=== PATIENT | male | born 1970 | race Caucasian/White ===

== ENCOUNTER 2016-10-24 18:14 | Emergency (ER) | payer BC ==
[~2016-10-24] VITALS: Ht 182.9 cm; Wt 87.7 kg
[2016-10-24 18:30] VITALS: TEMP 36.8; O2SAT 97; Ht 182.9 cm; Wt 87.7 kg
[2016-10-24] MEDS ORDERED: SODIUM CHLORIDE 0.9% 1000ML 1,000 ML IV STA (18:38)
[2016-10-24 18:49] LABS: BASO % 0.4 %; BASO ABS # 0.04 K/uL (0-0.2); COMPLETE YES; EOS % 3.4 %; HEMATOCRIT 44.7 % (42-52); IG% 0.6 %; LYMPH % 26.1 %; LYMPH ABS # 2.53 K/uL (1.2-3.4); MEAN CELL VOLUME 93.3 fL (80-100); MEAN CORPUSCULAR HEMOGLOBIN 32.6 pg (25-34); MEAN CORPUSCULAR HGB CONC 34.9 g/dl (32-36); MEAN PLATELET VOLUME 11.1 fL (7.4-10.4); MONO % 8.8 %; NEUT % 60.7 %; PLATELET COUNT 308 K/uL (130-400); RED BLOOD COUNT 4.79 M/uL (4.7-6.1); WHITE BLOOD COUNT 9.69 K/uL (4.8-10.8)
[2016-10-24 19:01] LABS: CALCIUM 8.9 mg/dl (8.5-10.1); CREATININE 0.89 mg/dl (0.60-1.40); POTASSIUM 4.1 mmol/L (3.5-5.1)
--- NOTE | 2016-10-24 19:05 | DIAGNOSTIC IMAGING REPORT ---
CHEST ONE VIEW PORTABLE CLINICAL HISTORY: Chest pain. COMPARISON STUDY: No previous studies for comparison. FINDINGS: Lung volumes are normal. Lungs are clear. There is no pneumothorax or pleural effusion. Cardiac size is within normal limits. There is no evidence of pulmonary edema. IMPRESSION: No acute cardiopulmonary findings. Electronically signed by: Nik Seals M.D. 10/24/2016 7:04 PM Dictated Date/Time: 10/24/2016 7:03 PM
[2016-10-24 19:06] LABS: CKMB/CK RATIO 1.1 (0-3.0)
[2016-10-24 19:13] LABS: BENZODIAZEPINE, URINE NEG (NEG); COCAINE,URINE NEG (NEG); PHENCYCLIDINE, URINE NEG (NEG)
[2016-10-24 19:41] LABS: URINE APPEARANCE CLEAR (CLEAR); URINE BILIRUBIN NEG (NEG); URINE COLOR YELLOW; URINE NITRITE NEG (NEG); URINE SPECIFIC GRAVITY 1.004 (1.000-1.030); UROBILINOGEN NEG (NEG)
[2016-10-24 19:46] LABS: MANUAL MICROSCOPIC REQUIRED? NO; REVIEW REQ? NO
[2016-10-24 20:17] VITALS: BP 155/92; PULSE 78; O2SAT 98
--- NOTE | 2016-10-25 01:52 | EMERGENCY ROOM VISIT NOTE ---
ED Visit Note First contact with patient: 18:25 Chief Complaint: Chest pain. History of Present Illness: Mr. Mckenzie is a 46 year-old white male who was brought into the ED via ambulance complaining of left sided chest pain. Patient was referred from a urgent care center in [place]. EMS reports patient was stable and had no acute changes en route. He did receive aspirin and nitroglycerin with minimal changes in his discomfort. Historically patient reports no personal history of coronary artery disease but does report her grandparents on both sides of the family does have heart disease with his maternal grandfather having a myocardial infarction in his early 50s. Patient's risk factors include tobacco and methamphetamine abuse. He denies diabetes, hypertension, dyslipidemia. Patient reports last few weeks he has been having intermittent left-sided chest pain. He reports these happen at rest and with activity. They resolved while he is active or at rest. They do not follow any significant pattern and they are not intense. Patient reports approximately 1 PM this afternoon, approximately 5.5 hours ago he was doing cards and using methamphetamine. He is not sure of the timing of the methamphetamine and the onset of the symptoms. Patient reports a today's discomfort had an acute onset and has been constant since with waxing and waning. He has difficulty describing his discomfort and has used multiple descriptors but on my initial evaluation he describes it as a numbness sensation. Patient is located over the lateral upper aspect of the chest and shoulder. His discomfort is radiating up through the trapezius into his neck and down into his arm to the mid forearm area. He has not identified any aggravating or alleviating factors related to his discomfort. He did not feel the aspirin or nitroglycerin changed or decreased his discomfort. He denies any associated symptoms including fevers, chills, sweats, skin eruptions , skin color changes, upper respiratory tract symptoms, wheezing, cough shortness of breath, orthopnea, dependent edema, previous clots, claudication, cramping, recent surgery/inactivity/extended travel, abdominal pain, nausea, vomiting, diarrhea, constipation, rectal bleeding, black/tarry stools, urinary symptoms, back/flank pain. Review of Systems: As noted above in history of present illness. All body systems were reviewed and found to be negative as noted above. Past Medical History: As noted above. Current Medications: Patient denies. Allergies to Medications: Patient denies. Social History: Patient is currently employed; he feels safe in his home environment; he admits to tobacco, alcohol and methamphetamine use. Physical Examination: Vital Signs: Date Time Temp Pulse Resp B/P Pulse Ox O2 Delivery O2 Flow Rate FiO2 10/24/16 20:17 78 155/92 98 10/24/16 19:45 84 16 129/89 97 Room Air 10/24/16 18:52 82 14 141/85 98 Room Air 10/24/16 18:34 84 10/24/16 18:30 36.8 84 18 117/81 97 Room Air GENERAL: 46-year-old male in no acute distress, nontoxic-appearing, afebrile and hemodynamically stable. NEUROLOGICAL: Awake, alert and oriented to person, place and time. Answering questions appropriately and following commands. Normal gait. Good hand eye coordination. SKIN: Warm, dry and pink. No soft tissue eruptions or trauma noted. HEENT: Atraumatic and normocephalic. PERRLA. Sclera white and conjunctiva pink. Oral cavity moist and pink. Pharynx is nonerythematous or edematous. Speech normal. No lymphadenopathy. Trachea midline. No jugular venous distention. No carotid bruits. BACK: No tenderness over the bony spine. No CVA tenderness. THORAX: Lungs sounds are clear to auscultation and equal bilaterally with symmetrical chest wall. No wheezing, rales or rhonchi. No crepitus, tenderness , subcutaneous air or deformities noted. HEART: Regular rate and rhythm. No gallops, rubs or murmurs are appreciated. No lifts, heaves or thrills. PMI is not displaced. ABDOMEN: Flat, soft and nontender. Positive bowel sounds in all quadrants. No guarding, rigidity or organomegaly. EXTREMITIES: Moves all extremities well on command and with purpose. All distal neurovascular statuses are intact and equal bilaterally. No dependent edema or calf tenderness/cords. ED Course: Patient is assessed as noted above. Laboratory Testing: Test 10/24/16 00:00 10/24/16 17:56 10/24/16 18:50 10/24/16 19:05 Range/Units Urine Color YELLOW Urine Appearance CLEAR CLEAR Urine pH 7.0 4.5-7.5 Urine Specific [place] 1.004 1.000-1.030 Urine Protein NEG NEG Urine Glucose (UA) NEG NEG Urine Ketones NEG NEG Urine Occult Blood NEG NEG Urine Nitrite NEG NEG Urine Bilirubin NEG NEG Urine Urobilinogen NEG NEG Urine Leukocyte Esterase NEG NEG White Blood Count 9.69 4.8-10.8 K/uL Red Blood Count 4.79 4.7-6.1 M/uL Hemoglobin 15.6 14.0-18.0 g/dL Hematocrit 44.7 42-52 % Mean Corpuscular Volume 93.3 80-100 fL Mean Corpuscular Hemoglobin 32.6 25-34 pg Mean Corpuscular Hemoglobin Concent 34.9 32-36 g/dl Platelet Count 308 130-400 K/uL Mean Platelet Volume 11.1 7.4-10.4 fL Neutrophils (%) (Auto) 60.7 % Lymphocytes (%) (Auto) 26.1 % Monocytes (%) (Auto) 8.8 % Eosinophils (%) (Auto) 3.4 % Basophils (%) (Auto) 0.4 % Neutrophils # (Auto) 5.88 1.4-6.5 K/uL Lymphocytes # (Auto) 2.53 1.2-3.4 K/uL Monocytes # (Auto) 0.85 0.11-0.59 K/uL Eosinophils # (Auto) 0.33 0-0.5 K/uL Basophils # (Auto) 0.04 0-0.2 K/uL RDW Standard Deviation 45.0 36.4-46.3 fL RDW Coefficient of Variation 13.1 11.5-14.5 % Immature Granulocyte % (Auto) 0.6 % Immature Granulocyte # (Auto) 0.06 0.00-0.02 K/uL Sodium Level 136 136-145 mmol/L Potassium Level 4.1 3.5-5.1 mmol/L Chloride Level 99 98-107 mmol/L Carbon Dioxide Level 29 21-32 mmol/L Anion Gap 8.0 3-11 mmol/L Blood Urea Nitrogen 9 7-18 mg/dl Creatinine 0.89 0.60-1.40 mg/dl Est Creatinine Clear Calc Drug Dose 116.3 ml/min Estimated GFR () 120.5 Estimated GFR (Non- 104.0 BUN/Creatinine Ratio 10.0 10-20 Random Glucose 97 70-99 mg/dl Calcium Level 8.9 8.5-10.1 mg/dl Total Bilirubin 0.2 0.2-1 mg/dl Direct Bilirubin 0.1 0-0.2 mg/dl Aspartate Amino Transf (AST/SGOT) 16 15-37 U/L Alanine Aminotransferase (ALT/SGPT) 29 12-78 U/L Alkaline Phosphatase 78 45-117 U/L Total Creatine Kinase 100 39-308 U/L Creatine Kinase MB 1.1 0.5-3.6 ng/ml Creatine Kinase MB Ratio 1.1 0-3.0 Total Protein 7.5 6.4-8.2 gm/dl Albumin 4.0 3.4-5.0 gm/dl Lipase 160 73-393 U/L Urine Opiates Screen NEG NEG Urine Methadone, Qualitative NEG NEG Urine Barbiturates NEG NEG Urine Phencyclidine (PCP) Level NEG NEG Ur Amphetamine/Methamphetamine POS NEG MDMA (Ecstasy) Screen NEG NEG Urine Benzodiazepines Screen NEG NEG Urine Cocaine Metabolite NEG NEG Urine Marijuana (THC) NEG NEG Bedside Troponin I 0.000 0-0.045 ng/ml EKG: Was read by myself and reviewed with Dr. Baldwin; shows normal sinus rhythm with a ventricular rate of 67 bpm. Normal axis, intervals and complexes. No acute ST changes including ischemia, injury or infarction. Medical records were reviewed and no previous were available for comparison. Chest X-Rays: Were read by myself and reviewed with Dr. Baldwin; shows no acute infiltrates, effusions or pneumothorax. Normal heart silhouette and bony anatomy. Patient was hydrated with normal saline. Patient was reassessed multiple times during his stay in the emergency department. Patient's case was reviewed with Dr. Baldwin; we agreed on diagnostic approach, treatment, disposition and plan. Patient was educated about tonight's findings and instructed on his treatment plan; he verbalizes understanding and agreement with this plan. Clinical Impression: Left-sided chest pain. Methamphetamine abuse. Decision-Making: Initially my differential diagnosis I considered acute coronary syndrome, myocardial ischemia, musculoskeletal disorder, cervical radiculopathy, pneumothorax, pneumonia, pulmonary embolism and other causes. Disposition: Patient discharged home in stable condition accompanied by friends ; prior to departure he was reassessed and subjectively reported he was pain and symptom-free. Plan: Patient was encouraged to use ibuprofen or acetaminophen as needed for pain. Patient was encouraged to avoid methamphetamine abuse. Patient was encouraged follow-up with family physician for recheck in 2-3 days. Patient was encouraged return the ED for return or worsening chest discomfort, shortness of breath, fevers or any new/concerning symptoms.
== END 2016-10-24 20:18 | disposition home or self-care (01) ==
LOC: EDBD 18:14 → C.EDC 18:16
DX: R07.9 Chest pain, unspecified (principal); F15.20 Other stimulant dependence, uncomplicated; F17.200 Nicotine dependence, unspecified, uncomplicated